=== PATIENT | female | born 1950 | race Caucasian/White ===

== ENCOUNTER 2022-03-04 15:02 | Outpatient (REF) | payer BC, MEDICARE, SELFPAY ==
[2022-03-06 13:42] LABS: COVID-19 RT-PCR UVMMC Result Negative (Negative)
== END 2022-03-04 15:03 | disposition home or self-care (01) ==
LOC: LBN 15:02
PROVIDERS: Visit Provider Physician Assistant Medical
DX: Z20.822 Contact with and (suspected) exposure to COVID-19 (principal); R05.8 Other specified cough
CPT/HCPCS: U0003

== ENCOUNTER 2023-12-29 11:01 | Emergency (ER) | payer MEDICARE, SELFPAY ==
--- NOTE | 2023-12-29 11:00 | RT.EKG_ITS ---
APPROVED REPORT Exam: Resting ECG Reason for Exam: Chest pain Patient Location: E HR:73 bpm ECG Measurements Heart Rate 73 AXIS MD 168 P 28 QRSd 84 QRS 54 QT 404 T 59 QTc 445 Conclusion Sinus rhythm...normal P axis, V-rate 60- 99 Consider anteroseptal infarct...Q >30mS, dimin R, V1-V2 NSR Qs in V1 and V2 No stemi, no previous
[2023-12-29 11:13] VITALS: BP 151/75; PULSE 64; RESP 18; TEMP 36.7; O2SAT 96
--- NOTE | 2023-12-29 13:14 | W.ED.GENAD ---
Discharge Plan Disposition Patient Disposition: Home Condition: Improving Discharge Details Chief Complaint: Chest Pain Clinical Impression: Lethargy, Pounding heartbeat, Chest pain, Numbness and tingling of both feet Primary Care Provider: [facility] ED Provider: Iliana Cardona Home Meds and New Rx's Prescriptions: No Action No Known Home Meds Discharge Instructions Instructions: Chest Pain (ED), Heart Palpitations (ED), Paresthesia (ED), Weakness (ED) Additional Instructions: Return here for any new or worrisome symptoms. Avoid stimulants and caffeine. Keep your follow-up appointment the nurse practitioner at [facility]. The lab will fax the results of your TSH (thyroid test) to the office. You will receive a phone call from Dr. Nichols's office (cardiology) with a follow-up appointment. You will also be called by the [facility] and neurologist with appointments for your foot numbness. Take a regular multivitamin daily and an enteric-coated baby aspirin once daily. Return here for any new or worrisome symptoms. Discharge Data Discharge Date/Time-TO BE ENTERED AT DEPARTURE: 12/29/23 17:10 Discharge Physician: Iliana Cardona [facility] General Date/Time Provider Initiated Documentation: 12/29/23 12:22. Limitations to Documentation: no limitations. Information obtained by: patient. HPI Narrative: Time seen was 120 p.m. in the triage room. The patient is a 73-year-old female who presents with heart pounding who was sent in from urgent care. The patient does not smoke or use cocaine. She does not have hypertension or diabetes. She does have borderline cholesterol which she is treating with diet. Her brother who is 4 years younger than her has had a myocardial infarction. She tells me that it was recommended to him that he have surgery for his heart but he declined. He lives in [facility]. The patient was born. The patient tells me that she has been feeling tired for several weeks. Last night at 11 PM she began having irregular pounding of her heart. It lasted 2 hours. She took aspirin and was able to go to sleep but it recurred at 4 AM. The patient went to urgent care today and was referred to the emergency department. She drove herself in. She has not had any further chest discomfort or pounding. She tells me that it felt as though it was a regular pounding located in the left side of her chest in the axillary line. It did not radiate. The patient tells me that she has self diagnosed herself with peripheral neuropathy. She has no prior history of cardiovascular disease. She does have an appointment to see a PCP in January. She denies any fevers or chills. She denies any weight loss. She denies any changes in her hair or skin. She denies any swelling of her neck or legs. She has had chronic numbness of both feet and believes she has neuropathy. She only drinks alcohol occasionally and denies using any drugs. Related Data Home Medications Medication Instructions Recorded Confirmed Unknown [No Known Home Meds] 12/29/23 12/29/23 General Stated Complaint: Chest Pain BERNARDO: 3 Review of Systems Narrative: see hpi Exam Narrative Exam Narrative: The patient is a well-developed well-nourished female who is alert and oriented in no acute distress. She appears younger than her stated age. She is mildly hypertensive. Her blood pressure is 151/75. Her heart rate is 64 she is not tachypneic or febrile. She has a normal room air O2 sat at 96%. Her GCS is 15. Const General: cooperative, healthy appearing, comfortable, no acute distress, well developed, well groomed and well hydrated Nutritional Appearance: average body habitus and well nourished Orientation: alert, awake and oriented x3 HENMT Head: normal to inspection, normocephalic and atraumatic Ears: hearing grossly normal bilaterally and external ears normal General nose exam: external nose normal, nares normal and no nasal discharge Face and sinus: normal facial exam, sinuses nontender and face symmetric Mouth: oral mucosae normal, lip normal, tongue normal, oropharynx normal, moist mucous membranes and other (Normal phonation. The patient is handling secretions.) Throat: posterior oropharynx normal and uvula midline Eyes General: appearance normal, both eyes and all related structures Eyelids: eyelids normal Conjunctivae: conjunctivae normal Sclera: sclerae normal Cornea: corneas normal Pupils: PERRL EOM: EOM intact bilaterally and No nystagmus Neck Neck: normal visual inspection, full ROM, no lymphadenopathy, no meningeal signs, trachea midline and supple Lymphatic: no lymphadenopathy noted Chest Chest: normal inspection of the chest Resp Effort & Inspection: normal respiratory effort, able to speak in complete sentences, no audible wheezes, no nasal flaring, no respiratory distress, no retractions, no stridor, not tachypneic, no tracheal deviation, no use of accessory muscles, No prolonged expiratory phase and other (Normal inspiratory to expiratory ratio.) Auscultation: clear to auscultation bilaterally, no rales, no rhonchi, no wheezes and no rubs Tactile Fremitus: tactile fremitus absent Cardio Jugular venous pressure: no JVD Palpation: normal PMI Rate: regular rate Rhythm: regular rhythm Heart Sounds: S1 normal, S2 normal, no gallops, no murmurs and no rubs GI Inspection: normal to inspection and non-distended Palpation: soft, no hepatosplenomegaly, no guarding and nontender Percussion: normal to percussion Auscultation: normal bowel sounds General: No CVA tenderness Back/Spine/Pelvis Back: no CVA tenderness and No back tenderness Cervical Spine: normal cervical lordosis, cervical ROM normal, No cervical muscular tenderness, No pain with cervical ROM, No cervical spinal tenderness and No step off deformity Thoracic/Lumbar Spine: thoracic and lumbar spine normal to inspection, No thoracic spinal tenderness and No lumbar spinal tenderness Pelvis: no pain with anterior-posterior compression and no pain with lateral compression Skin General skin exam: no rashes or lesions noted, turgor normal, no petechiae, no purpura and other (Skin is normal for ethnicity.) Lesions: no lesions Rashes: no rashes Trauma: no lacerations or abrasions Neuro General: patient alert, patient awake, patient oriented x3, moves all extremities, no meningeal signs, no focal motor deficits and CN's II-XI intact bilaterally Cranial Nerves: CN's II-XI intact bilaterally, PERRL, accommodation normal, EOM intact bilaterally, no nystagmus, facial strength normal, tongue midline, hearing normal and no nystagmus Cognition: normal cognition Speech: speech normal Gait: normal gait Motor: muscle tone normal throughout and strength 5/5 throughout Sensory Exam: other (decreased sensation in both feet from the midfoot distally ) Extrem General: normal to inspection, full ROM, capillary refill normal, no clubbing, cyanosis or edema and no calf tenderness Other: As above. Decreased sensation on the soles of both feet. Normal capillary refill. No swelling or deformity. Psych Appearance: grossly normal Affect: normal affect Attitude: cooperative Thought Process: normal Thought Content: normal Insight: insight good Judgment: judgment good Other: The patient appears to have capacity make medical decisions. Course 3:49 PM the patient's heart score is low. Her initial troponin is negative. The second troponin is pending. 4:38 PM I have updated the patient on her blood work and notified her that a second troponin is pending. She is complaining of bilateral foot numbness and has self diagnosed with peripheral neuropathy but I do not suspect that is rule out she has since she does not have diabetes and only drinks occasionally. She is also complaining of lethargy. I have called the lab and will add on a TSH with reflex T4. 5:02 PM I have gotten the fax number for the patient's PCP, [facility], think she has an appointment on January 28. The lab will fax her TSH and reflex T4 to them. Patient's second troponin is negative and her repeat EKG is unchanged. I will discharge her home with instructions to return for any new or worrisome symptoms. To avoid caffeine and to keep her follow-up appointment with her PCP. I have asked that she have follow-up with podiatry cardiology and neurology. Vital Signs Vital signs: Vital Signs Temperature 36.7 C 12/29/23 11:13 Pulse 64 12/29/23 11:13 Respiratory Rate 18 12/29/23 11:13 Blood Pressure 151/75 H 12/29/23 11:13 Pulse Oximetry 96 12/29/23 11:13 Temperature 36.7 C 12/29/23 11:13 Temperature Source Temporal Artery Scan 12/29/23 11:13 Pulse 64 12/29/23 11:13 Respiratory Rate 18 12/29/23 11:13 Blood Pressure 151/75 H 12/29/23 11:13 Blood Pressure Position Sitting 12/29/23 11:13 Pulse Oximetry 96 12/29/23 11:13 Oxygen Delivery Method Room Air 12/29/23 11:13 Oxygen Flow Rate 0 12/29/23 11:13 Lab/Test Results Lab/Test Results: Initial troponin is negative, second troponin negative Medical Decision Making This is a 73-year-old female who presents with 2 weeks of lethargy and the sensation of her heart pounding in the left side of her chest which lasted 2 hours last night and resolved and then reoccurred at 4 AM. She denies any URI symptoms, her exam is reassuring. I will calculate her heart score. I have ordered cardiac enzymes and a comprehensive metabolic panel and CBC to evaluate her electrolytes, renal function, liver function and to check for anemia which could also cause the symptoms. She denies any blood in the stool but has had some diarrhea. She has never had any cardiac workup in the past. She will likely be discharged home after 2 negative troponins. She is also complaining of lethargy and we will make sure she is not anemic or in renal failure. If she is discharged home we will have her follow-up with cardiology neurology and podiatry Imaging Data Radiologic Study: Imaging: X-Ray (pCXR) Radiologist's impression: IMPRESSION: No acute pulmonary findings on this single AP portable view of the chest. Lab Data Lab results reviewed: Yes I reviewed the patient's lab results. Lab results narrative: Normal white count. Normal H&H, ECG Data Attestation: I personally reviewed and interpreted this ECG (s) as follows: Prior ECG tracings: available for review Quality:SDOH Health Related Social Needs: No Data to Display Critical Care Time Critical Care Time Critical Care Time: Yes Total Critical Care Time: 53 Attestation: This includes time at the bedside, frequent reassessment and updates on lab work EKG and chest x-ray. This includes looking up her primary care's fax number and relaying this to the lab who will fax her TSH to her PCP. PFSH All Active Problems (Updated 12/29/23 @ 17:10 by Iliana Cardona MD) Numbness and tingling of both feet (Acute) Chest pain (Acute) Pounding heartbeat (Acute) Lethargy (Acute) Social History Smoking risk assessment performed?: No
[2023-12-29] MEDS: Normal Saline 1,000 ML 125 ML IV (14:12)
[2023-12-29] MEDS: Aspirin 81 MG CHEW 324 MG CH (14:12)
[2023-12-29 14:23] LABS: Abs Immature Grans 0.02 10^3/uL (0.0-0.06); Absolute Basophil Count 0.06 10^3/uL (0.0-0.2); Absolute Eosinophil Count 0.24 10^3/uL (0.0-0.7); Absolute Lymphocyte Count 2.54 10^3/uL (1.2-3.4); Absolute Monocyte Count 0.66 10^3/uL (0.1-0.8); Absolute Neutrophil Count 4.32 10^3/uL (1.2-6.7); Basophils % 0.8; Eosinophils % 3.1; HCT 45.4 % (36.0-46.0); HGB 14.9 g/dL (11.2-15.7); Immature Grans % 0.3; Lymphocytes % 32.4; MCH 29.7 pg (27.0-33.0); MCHC 32.8 % (32.0-36.0); MCV 90 fL (80-95); MPV 10.8 fL (8.0-11.0); Monocytes % 8.4; Platelet Count 249 10^3/uL (130-400); RBC 5.02 10^6/uL (3.93-5.22); RDW 12.8 % (11.7-14.6); RDW-SD 42.7 fL; WBC 7.84 10^3/uL (4.4-10.8)
[2023-12-29 14:38] LABS: INR 1.1 (0.9-1.1); PTT Activated 28.8 sec (23.6-32.8); Prothrombin Time 10.7 sec (9.1-11.1)
--- NOTE | 2023-12-29 14:45 | DI.RAD_ITS ---
Exam(s) XR PORTABLE CHEST AP EXAM: XR PORTABLE CHEST AP CLINICAL HISTORY: chest pain. TECHNIQUE: 2D digital imaging was performed. COMPARISON: No exams were available for comparison FINDINGS: Single AP portable view. Heart size is upper normal. The mediastinum is not widened. Lungs are clear. No infiltrates nor obvious pleural effusions. IMPRESSION: No acute pulmonary findings on this single AP portable view of the chest. DATA REPOSITORY: RADIATION DOSE DELIVERED:
[2023-12-29 14:47] LABS: ALT 32 U/L (14-59); AST 24 U/L (15-37); Albumin 3.7 g/dL (3.4-5.0); Alkaline Phosphatase 114 U/L (46-116); Anion Gap 8.1 mmol/L (3-11); BUN 21 mg/dL (7-18); Bilirubin, Total 0.4 mg/dL (0.2-1.0); CO2 25.9 mmol/L (21.0-32.0); CREATININE 0.9 mg/dL (0.55-1.02); Calcium 8.7 mg/dL (8.5-10.1); Chloride 107 mmol/L (98-107); Estimated GFR 67.92 (mL/min/1.73m2); Glucose 100 mg/dL (74-106); Magnesium 2.2 mg/dL (1.8-2.4); NT-proBNP 57 pg/mL (<300); Potassium 4.1 mmol/L (3.5-5.1); Sodium 141 mmol/L (136-145); Total Protein 7.2 g/dL (6.4-8.2)
[2023-12-29 14:49] LABS: Troponin I < 50 ng/L (< or =60)
[2023-12-29 14:53] LABS: D-Dimer 416 ng/mlFEU (<500)
[2023-12-29 16:41] LABS: Troponin I < 50 ng/L (< or =60)
--- NOTE | 2023-12-29 16:45 | RT.EKG_ITS ---
APPROVED REPORT Exam: Resting ECG Reason for Exam: repeat Patient Location: E HR:62 bpm ECG Measurements Heart Rate 62 AXIS IN 255 P 1 QRSd 80 QRS 25 QT 424 T 49 QTc 431 Conclusion Sinus rhythm...normal P axis, V-rate 60- 99 Prolonged IN interval...IN >220, V-rate 50- 90 Consider anteroseptal infarct...Q >30mS, dimin R, V1-V2 Agree, no changes from earlier, no STEMI
--- NOTE | 2023-12-29 16:50 | NUR.NOTE ---
Nursing Note: PT needs follow up with cardiology for palpatations BRIANA, Follow up with neurology and podiatry for bilateral extremity numbnes, next appt available. [facility]arlene, ED
[2023-12-29 17:16] LABS: TSH (W/Ref FT4) 2.83 uIU/mL (0.36-3.74)
== END 2023-12-29 17:24 | disposition home or self-care (01) ==
PROVIDERS: Emergency Provider Emergency Medicine Emergency Medical Services; PCP Registered Nurse
DX: R53.83 Other fatigue (principal); R07.9 Chest pain, unspecified
CPT/HCPCS: 80053; 93005; 99285; 71045; 83735; 83880; 84443; 84484; 85025; 85379; 85610; 85730; 93010; 99284